=== PATIENT | female | born 1945 | race Caucasian/White ===

== ENCOUNTER 2023-09-18 22:31 | Emergency (ER) | payer MEDICARE, OTHER, SELFPAY ==
[2023-09-18 22:33] VITALS: BP 146/112; PULSE 99; RESP 16; TEMP 36.8; O2SAT 96; BMI 32.7
--- NOTE | 2023-09-18 23:08 | EDS_ITS ---
HPI History of Present Illness Chief Complaint: General Illness Informant: patient Narrative Narrative: Patient is a 77-year-old female with past medical history of [id number] type 2 diabetes hypothyroidism hypertension and herpes. She states that she went to her family doctor as she noticed a increase in lesions and advised her to take three 400 mg acyclovir once daily for the next few days. She states she did this and later than day for like she was shaking and had increased anxiety. He states she was concerned that she may have overdosed and therefore comes in for evaluation [facility] Home Medications acyclovir 400 mg tablet 400 mg PO DAILY 09/18/23 [History Last Taken Unknown] dulaglutide 3 mg/0.5 mL subcutaneous pen injector (Trulicity) 4.5 mg subcut .COMPLEX 09/18/23 [History Last Taken Unknown] empagliflozin 25 mg tablet (Jardiance) 25 mg PO DAILY 09/18/23 [History Last Taken Unknown] fluconazole 150 mg tablet 150 mg PO .COMPLEX 09/18/23 [History Last Taken Unknown] levothyroxine 75 mcg tablet 75 mcg PO DAILY 09/18/23 [History Last Taken Unknown] lisinopril 10 mg tablet 5 mg PO DAILY 09/18/23 [History Last Taken Unknown] pioglitazone 15 mg tablet 15 mg PO DAILY 09/18/23 [History Last Taken Unknown] pravastatin 40 mg tablet 40 mg PO DAILY 09/18/23 [History Last Taken Unknown] Allergy/AdvReac Type Severity Reaction Status Date / Time No Known Allergies Allergy Verified 09/18/23 22:32 Social History Smoking Status: Never smoker [facility] ED Constitutional Constitutional ED: Denies chills or fever(s) Eyes Eyes: Denies change in vision ENT ENT ED: Denies sore throat Cardiovascular Cardiovascular: Denies chest pain Respiratory/Chest Respiratory/Chest: Denies cough or dyspnea Gastrointestinal Gastrointestinal: Denies abdominal pain, diarrhea, nausea or vomiting Genitourinary Genitourinary ED: Denies dysuria Musculoskeletal Musculoskeletal: Denies myalgias Integumentary Denies rash Neurologic Neurologic: Reports other Details: Positive intermittent shaking ; Denies headache(s) Psychiatric Psychiatric: Reports anxiety; Denies suicidal ideation or suicidal thoughts Hematologic/Lymphatic Hematologic/Lymphatic: Denies easy bleeding or easy bruising EXAM Physical Exam Const Vital Signs: 09/18/23 22:33 09/18/23 22:48 Temperature 98.3 F Temperature Source Temporal Pulse Rate 99 Respiratory Rate 16 Respiratory Pattern Normal Blood Pressure 146/112 H Blood Pressure Mean 123 Pulse Ox 96 Oxygen Delivery Method Room Air Positive well nourished and well developed General Appearance ED: well developed; Negative for pallor HEENT HEENT Narrative: Normocephalic atraumatic Eyes PERRL and EOMs intact bilaterally General Eye ED: Negative for scleral icterus Neck supple Neck Narrative: No nuchal rigidity or meningeal signs noted Resp normal respiratory effort and clear to auscultation bilaterally Cardio regular rate and regular rhythm Rate: other Other Details: Radial and carotid pulses are equal and symmetric GI normal to inspection, nondistended, normoactive bowel sounds, non-tender, non- distended and no masses GI Narrative: No pulsatile mass Auscultation: normoactive bowel sounds Palpation: soft Extremity normal to inspection Neuro oriented x3, CN's II-XII intact bilaterally and no sensory deficits noted Neuro Narrative: Cranial nerves II through XII are grossly intact there are no focal neurologic deficits. No pronator drift no dysmetria no truncal ataxia. NIH stroke scale score of 0 Sensorium / Orientation: alert Motor Exam: strength 5/5 throughout Psych Psych Narrative: Patient has a nervous/anxious affect without homicidal or suicidal ideation Skin no rashes or lesions noted General Skin Exam: Negative for jaundice or pallor MDM MDM MDM Narrative Medical decision making narrative: Patient arrived to the ER mildly hypertensive otherwise with stable vitals. She reports that her family doctor had her take 3 of her acyclovir pills today which she is not accustomed to. She states that she was reading the package insert and noted that it talked about it could lead to shaking and/or seizures. She states that after reading this she then noticed that she was having bouts of intermittent shaking or spasms. She states she was unsure if this was related to the medication and therefore comes in for evaluation. She states other than the increased acyclovir recommended by her doctor she has not done any other medication changes nor taking any type of illicit substances. At this time the patient's symptoms are most consistent with anxiety state as she is awake alert and oriented person place and time without signs of hypertensive encephalopathy or signs of acute CVA. Also the fact that she has been awake and alert the entire time goes against seizure-like activity. She does not have findings concerning for myxedema coma on exam either or thyroid storm. Therefore at this time I do not feel there is a need for imaging or laboratory studies and that the patient's symptoms are most likely anxiety driven. As she is not homicidal or suicidal there is no need for psychiatric workup and she is otherwise safe for discharge History & Record Review Discussion w/independent historian: Patient and Friend Discharge Plan Triage Chief Complaint: General Illness ED Provider: Nabor Arzola Dx/Rx/DC Orders Clinical Impression: Anxiety state, Type 2 diabetes mellitus, Hypothyroidism, Hypertension Instructions: Understanding Anxiety Disorders Prescriptions: No Action acyclovir 400 mg tablet 400 mg PO DAILY Patient Comments: INSTRUCTED TO INCREASE TO 3 TABLETS X2 DAYS, 09/18 AND 09/19, THEN GO BACK TO ONE TABLET DAILY 09/20 lisinopril 10 mg tablet 5 mg PO DAILY levothyroxine 75 mcg tablet 75 mcg PO DAILY Patient Comments: HAS NOT STARTED 75MCG DOSE, WAS ON 50MCG UNTIL TODAY 09/18 pravastatin 40 mg tablet 40 mg PO DAILY Trulicity 3 mg/0.5 mL pen injector 4.5 mg SUBCUT .COMPLEX Rx Instructions: 4.5 mg subcutaneously ONCE WEEKLY; ONCE PER WEEK Jardiance 25 mg tablet 25 mg PO DAILY pioglitazone 15 mg tablet 15 mg PO DAILY fluconazole 150 mg tablet 150 mg PO .COMPLEX Rx Instructions: 150 mg orally WEEKLY; Primary Care Provider: Pablito Baugh Referrals: Pablito Baugh PA [Primary Care Provider] - Activity Restrictions/Additional Instructions: Your history and exam indicate that your symptoms are more related to your chronic conditions of hypothyroidism and diabetes and this was worsened by the increased stress/anxiety from taking added medications today. Please take the medications as directed by your family doctor but return to your once daily acyclovir. Please return to the ER should you have any further concerns. If you have difficulty sleeping this evening it is peripheral acceptable to take 2 [id number] Benadryl to help with this Disposition Disposition: Home, Self Care Discharge Date/Time: 09/18/23 23:18
== END 2023-09-18 23:18 | disposition home or self-care (01) ==
LOC: ED 23:17
PROVIDERS: Emergency Provider Emergency Medicine; PCP Physician Assistant; Visit Provider Emergency Medicine
DX: F41.1 Generalized anxiety disorder (principal); E11.9 Type 2 diabetes mellitus without complications; I10 Essential (primary) hypertension; E03.9 Hypothyroidism, unspecified; Z79.899 Other long term (current) drug therapy
CPT/HCPCS: 99282

== ENCOUNTER 2024-10-03 11:25 | Inpatient (IN) | payer MEDICARE, OTHER, SELFPAY ==
[2024-10-03] VITALS (17 sets, daily range): BP systolic 107–144; BP diastolic 68–104; PULSE 91–145; RESP 14–28; TEMP 36.6–36.9; O2SAT 95–99; BMI 31.4; BMI 28.3
--- NOTE | 2024-10-03 11:48 | ED.VIS.CHEST ---
HPI History of Present Illness Chief Complaint: Chest Pain Informant: patient Onset/Context/Timing Onset: Today and Hours Timing: Continuous Quality: Positive for Burning and Indigestion Location: Substernal Current Severity: Mild Maximum Severity: Mild Worsened By: Nothing Relieved By: Nothing Associated Symptoms: Positive for Nausea and Vomiting Narrative Narrative: 78-year-old female past medical history of diabetes, hypothyroidism and high cholesterol. No cardiac history. No history of DVT or PE. Prior history of reflux. States today while eating her breakfast she got lower sternal epigastric pain. Had some nausea and vomiting. Denies any shortness of breath. No recent exertional chest pain or exertional dyspnea. Says she walks around her house all the time up and down steps without any problems. Denies recent illness. Denies fever or diarrhea. No melena or coffee-ground emesis. Prior Similar Symptoms: No Recent Illness/Hospitalization: No CVD Risk Factors: Positive for Diabetes and Hypercholesterolemia; Negative for Hypertension or Smoking PE Risk Factors: Negative for Recent Travel/Surgery, Recent Immobilization, Prior DVT or PE, Cancer or OCP + Smoking + >/=35 TAD Risk Factors: Negative for Marfan's Syndrome [facility] Medical History H/O cold sores Hyperlipemia HTN (hypertension) Hypothyroid Diabetes Home Medications ?Medication ?Instructions ?Recorded ?Last Taken ?Type acyclovir 400 mg tablet 400 mg PO DAILY 09/18/23 10/03/24 History empagliflozin 25 mg tablet 25 mg PO DAILY 09/18/23 10/03/24 History (Jardiance) levothyroxine 75 mcg tablet 75 mcg PO MOTUWETHFRSA 09/18/23 10/03/24 History pravastatin 40 mg tablet 40 mg PO QHS 09/18/23 10/02/24 History calcium carbonate 600 mg PO BID 10/03/24 10/03/24 History cetirizine 10 mg tablet (24Hour 10 mg PO DAILY allergy symptoms 10/03/24 10/03/24 History Allergy) lisinopril 5 mg tablet 5 mg PO DAILY 10/03/24 10/03/24 History multivitamin (Daily Multi-Vitamin 1 tab PO DAILY 10/03/24 10/03/24 History tablet) semaglutide 14 mg tablet (Rybelsus) 14 mg PO DAILY 10/03/24 10/03/24 History Allergy/AdvReac Type Severity Reaction Status Date / Time No Known Allergies Allergy Verified 10/03/24 11:28 Family History no significant family his Social History household members: none housing: [facility] current occupational status: retired Smoking Status: Never smoker ROS ROS ED ROS Narrative Epigastric and lower chest pain. Nausea and vomiting. Constitutional Constitutional ED: Denies chills or fever(s) Eyes Eyes: Reports none ENT ENT ED: Denies ear pain Cardiovascular Cardiovascular: Reports chest pain; Denies palpitations or racing heartbeat Respiratory/Chest Respiratory/Chest: Denies cough, dyspnea or dyspnea on exertion Gastrointestinal Gastrointestinal: Reports abdominal pain, nausea, vomiting and other Details: Mild epigastric pain. ; Denies constipation, diarrhea or melena Genitourinary Genitourinary ED: Denies dysuria or hematuria Musculoskeletal Musculoskeletal: Denies arthralgias or back pain Integumentary Denies abscess or Abrasions Neurologic Neurologic: Denies headache(s) Psychiatric Psychiatric: Denies anxiety or depression Endocrine Endocrinology: Denies cold intolerance Hematologic/Lymphatic Hematologic/Lymphatic: Denies easy bleeding or easy bruising Allergic/Immunologic Allergic/Immunologic ED: Denies mouth swelling, tongue swelling or urticaria EXAM Physical Exam Narrative Exam Narrative: 62-year-old female sitting upright in bed. No distress. Vital signs stable afebrile. Pulse ox 97% on room air no hypoxia. H EENT exam pupils round reactive light. Extra motions are intact. Neck nontender no lymphadenopathy. Lungs clear to auscultation bilaterally. Heart regular rate and rhythm rate about 90 no murmur. Chest wall and ribs and sternum all nontender. No ecchymosis or bruising. No redness or warmth. Abdomen soft nondistended normal bowel sounds without peritoneal signs. Epigastric region with deep palpation is very minimal tenderness. There is no rebound guarding rigidity. No right upper quadrant tenderness. No Delong sign. No McBurney's point tenderness. No hernia or mass. No obstruction. No pulsatile mass. Moving all 4 extremities. Calves are nontender without edema. Normal dorsi plantarflexion. Normal hairspring truer strength. Equal symmetrical radial pulses. Back nontender. Neurologically she is awake and alert no focal motor deficits. Const Vital Signs: 10/03/24 11:28 10/03/24 11:44 10/03/24 11:45 Temperature 97.8 F Temperature Source Oral Pulse Rate 91 Respiratory Rate 16 Respiratory Effort Normal Non-Labored Blood Pressure 136/68 H Blood Pressure Mean 90 Pulse Ox 97 98 Oxygen Delivery Method Room Air Room Air 10/03/24 12:25 10/03/24 13:00 10/03/24 14:24 Temperature Temperature Source Pulse Rate 107 H 130 H Respiratory Rate 16 25 H Respiratory Effort Blood Pressure 144/81 H Blood Pressure Mean 102 Pulse Ox 99 98 Oxygen Delivery Method Room Air Room Air 10/03/24 15:00 10/03/24 15:07 10/03/24 15:30 Temperature Temperature Source Pulse Rate 145 H 129 H Respiratory Rate 26 H 14 Respiratory Effort Blood Pressure 143/85 H 144/72 H Blood Pressure Mean 101 93 Pulse Ox Oxygen Delivery Method 10/03/24 16:06 10/03/24 16:30 10/03/24 16:45 Temperature Temperature Source Pulse Rate 137 H 141 H 132 H Respiratory Rate 18 21 H 25 H Respiratory Effort Blood Pressure 139/76 H 143/104 H 118/82 H Blood Pressure Mean 90 118 95 Pulse Ox Oxygen Delivery Method 10/03/24 17:00 Temperature Temperature Source Pulse Rate 127 H Respiratory Rate 24 H Respiratory Effort Blood Pressure 126/79 H Blood Pressure Mean 91 Pulse Ox Oxygen Delivery Method Positive well nourished and well developed; Negative for cachectic, contractures or unkempt General Appearance ED: well developed and NAD; Negative for unkempt, cachectic, contractures or pallor Nutritional Appearance: Negative for cachectic HEENT Reports moist mucous membranes normocephalic and atraumatic; Negative for trauma or tenderness Eyes PERRL and EOMs intact bilaterally General Eye ED: Negative for pale conjunctiva or scleral icterus Neck no lymphadenopathy, supple and no JVD General: Negative for tenderness Chest Wall inspection of chest normal and palpation of chest normal Chest: Negative for tenderness Resp normal respiratory effort and clear to auscultation bilaterally Effort and Inspection: Negative for respiratory distress Auscultation: Negative for rales, rhonchi, wheezes or diminished lung sounds Cardio regular rate, regular rhythm, S1 normal heart sound, S2 normal heart sound and no murmurs Rate: Negative for bradycardia or tachycardic Peripheral Pulses: pulses 2+ throughout GI normal to inspection, nondistended, normoactive bowel sounds, soft to palpation, non-distended and no masses; Negative for non-tender GI Narrative: Minimal epigastric tenderness with deep palpation. Palpation: Negative for splenomegaly or mass Back/Spine no CVA tenderness and no thoracic nor lumbar tenderness General Back: Negative for CVA tenderness Cervical Spine: Negative for cervical spine tenderness Extremity normal to inspection General Extremety ED: Negative for edema, pulses abnormal or tenderness General Extremity: Negative for edema or pulses abnormal Neuro oriented x3 and CN's II-XII intact bilaterally Sensorium / Orientation: awake, alert, oriented to person, oriented to place and oriented to time; Negative for confused, lethargic or stuporous Motor Exam: strength 5/5 throughout Psych mental status grossly normal Appearance: Negative for unkempt Attitude: No agitated Mood & Affect: Negative for depressed, anxious or tearful Skin no rashes or lesions noted and no wounds General Skin Exam: Negative for jaundice or pallor Rashes: No rashes noted Trauma: Negative for abrasion or laceration Heart Score History: Slightly/Non-Suspicious ECG: Normal Age: >/= 65 years Risk Factors: 1 or 2 Risk Factors Troponin: </= Normal Limit Score: 3 MDM MDM MDM Narrative Medical decision making narrative: 78-year-old female with nonexertional chest and primarily epigastric pain. He gets unlikely. Repeat exam patient is doing well at 2:30 PM. Still not having any pain chest or abdominal pain at this time. We palpated a right upper quadrant nontender. I went over her test with her. With her elevated liver enzymes I am obtaining an ultrasound patient is aware that. I am going to do a 2-hour troponin but I really do not think this is cardiac at all. They did do a repeat EKG it showed a sinus tachycardia at 128. Repeat exam at 5 PM. Patient remains tachycardic around 130. Obtaining a CTA of her chest. She will be checked out to the afternoon physician. I will check the CTA results. I will speak to the hospitalist about planned admission. Pending CTA results. History & Record Review Discussion w/independent historian: Patient Additional record(s) reviewed:: Prior inpatient record, Prior outpatient record, Prior ED visit and Prior labs Lab Data Attestation: I reviewed the patient's lab results. Lab results narrative: CBC unremarkable. White count of 10. H&H 15.8 and 46. Platelets 194. Electrolytes show gap 16. BUN of 18 creatinine 0.8. Glucose 181. Liver enzymes are elevated. Lipase is normal at 44. Chest x-ray is normal. Troponin is normal at 11. Labs: Laboratory Results - last 24 hr 10/03/24 10/03/24 10/03/24 11:50 14:12 14:37 WBC 10.0 RBC 5.09 Hgb 15.8 H Hct 46.3 MCV 91.0 MCH 31.0 MCHC 34.1 RDW Std Deviation 44.9 H RDW Coeff of Charles 13.3 Plt Count 194 MPV 9.4 Immature Gran % (Auto) 0.500 Neut % (Auto) 81.9 H Lymph % (Auto) 10.9 L Alger % (Auto) 5.4 Eos % (Auto) 0.9 Baso % (Auto) 0.4 Absolute Neuts (auto) 8.2 H Absolute Lymphs (auto) 1.09 Nucleated RBC % 0 Sodium 141 Potassium 3.8 Chloride 101 Carbon Dioxide 23.9 Anion Gap 16 H BUN 18 Creatinine 0.83 Estim Creat Clear Calc 55.69 Est GFR (MDRD) Non-Af 73 BUN/Creatinine Ratio 22.0 H Glucose 181 H Calcium 9.9 Total Bilirubin 1.38 H Direct Bilirubin 0.98 H AST 242 H ALT 120 H Alkaline Phosphatase 80 Troponin T High Sens 11 Troponin T Hi Sens 2 Hr 9 Total Protein 7.2 Albumin 4.4 Globulin 2.7 Lipase 44 POC Glucose 123 H Third EKG was obtained at 3:14 PM. Again shows a sinus tachycardia incomplete right bundle branch block. Again no signs of AK. Radiography Chest X-Ray - ED: 1 View, Read by ED Physician, Read by Radiologist, Heart, Lungs, Mediastinum, Bony Structures, No Acute Disease and Chronic Changes Diagnostic Testing: Clinical Impression(s) from Imaging Studies Chest X-Ray 10/03/24 12:00 IMPRESSION: No acute cardiopulmonary process. [facility] Gall[facility]adder Ultrasound 10/03/24 14:32 IMPRESSION: 1. No visualized cholelithiasis or findings to suggest cholecystitis. No significant biliary dilatation. If unexplained symptoms persist, consider CT. 2. Additional description as above. Reading Location: [facility] Chest x-ray, portable, single view interpreted by myself shows no acute abnormality. Normal cardiac silhouette. Normal mediastinum. Normal lung richmond. Chronic changes. Rhythm Strip Rhythm Strip: Sinus Rhythm Rate: 91 Ectopy: None EKG Initial EKG: Attestation: I personally reviewed and interpreted this EKG as follows: Interpretation: Sinus Rhythm and No Acute Injury Pattern Comments: Normal sinus rhythm rate of 91 no acute signs of AK or ischemia. No dysrhythmia Follow-up EKG: Attestation: I personally reviewed and interpreted this EKG as follows: Interpretation: No Acute Injury Pattern and Sinus Tachycardia Comments: Sinus tachycardia rate of 128 no acute signs of AK or ischemia. Discharge Plan Triage Chief Complaint: Chest Pain ED Provider: Cruz Storm Dx/Rx/DC Orders Clinical Impression: Atypical chest pain, Tachycardia, History of diabetes mellitus Prescriptions: No Action Rybelsus 14 mg tablet 14 mg PO DAILY lisinopril 5 mg tablet 5 mg PO DAILY cetirizine [24Hour Allergy] 10 mg tablet 10 mg PO DAILY calcium carbonate 600 mg calcium (1,500 mg) tablet 600 mg PO BID multivitamin [Daily Multi-Vitamin] Tablet 1 tab PO DAILY acyclovir 400 mg tablet 400 mg PO DAILY levothyroxine 75 mcg tablet 75 mcg PO MOTUWETHFRSA pravastatin 40 mg tablet 40 mg PO QHS Jardiance 25 mg tablet 25 mg PO DAILY Primary Care Provider: Genesis Simpson Referrals: Pablito Baugh PA [Non-Staff] - Print Language: Indonesian Disposition Disposition: Acute Care Hospital [facility]
[2024-10-03] MEDS: Pantoprazole Sodium 40 MG Tablet PO (11:53)
--- NOTE | 2024-10-03 12:00 | RAD_ITS ---
PROCEDURE: CHEST 1 VIEW (PORTABLE) REASON FOR EXAM: Chest pain TECHNIQUE: Frontal view of the chest. COMPARISON: None FINDINGS: The heart size is normal. No focal consolidation. No pneumothorax. No pleural effusion. RAD/Chest 1 View (Portable) IMPRESSION: No acute cardiopulmonary process. [facility]
[2024-10-03 12:10] LABS: Absolute Lymphocyte Count 1.09 X10^3/uL (0.83-4.51); Absolute Neutrophil Count 8.2 X10^3/uL (2.0-7.7); Basophil# 0.04 X10^3/uL; Basophil% 0.4 % (0-1); Eosinophil# 0.09 X10^3/uL; Eosinophils% 0.9 % (0-5); Hematocrit 46.3 % (37-47); Hemoglobin 15.8 g/dL (12.0-15.0); Lymphocyte # 1.09 X10^3/ul (0.83-4.51); Lymphocyte % 10.9 % (19-41); Mean Corp Hgb Conc 34.1 g/dL (32-36); Mean Platelet Vol. 9.4 fl (6.2-12.0); Monocyte# 0.54 X10^3/uL; Monocyte% 5.4 % (0-10); NRBC Flagged by Analyzer 0 % (0-5); Neutrophil % 81.9 % (47-70); Platelet Count 194 K/mm3 (150-450); RBC Distribution Width CV 13.3 % (11.6-14.6); RBC Distribution Width SD 44.9 fl (35.1-43.9); Red Blood Count 5.09 M/mm3 (4.2-5.4)
[2024-10-03 12:24] LABS: Anion Gap 16 (5-15); BUN 18 mg/dL (4-19); Calcium,Total 9.9 mg/dL (7.6-11.0); Carbon Dioxide 23.9 mmol/L (21.0-32.0); Chloride 101 mmol/L (98-108); Creatinine, Serum 0.83 mg/dL (0.70-1.20); EST Glomerular Filtration Rate 73 (>60); Estimated Creatinine Clearance 55.69 ml/min (50-250); Glucose 181 mg/dL (70-99); Potassium 3.8 mmol/L (3.3-5.1); Sodium Level 141 mmol/L (133-145); Troponin T High Sensitivity 11 ng/L (<=14)
[2024-10-03 12:42] LABS: AST(SGOT) 242 U/L (<=31); Alanine Aminotransfer ALT/SGPT 120 U/L (<=34); Albumin, Serum 4.4 g/dL (3.4-4.8); Alkaline Phosphatase 80 U/L (35-104); Bilirubin, Direct 0.98 mg/dL (0.00-0.30); Globulin 2.7 g/dL (2.2-4.2); Lipase 44 U/L (13-75); Protein, Total 7.2 g/dL (5.9-8.4); Total Bilirubin 1.38 mg/dL (0.00-1.30)
[2024-10-03] MEDS: Ondansetron 4 MG/2 ML Vial IV (14:18)
[2024-10-03 14:29] LABS: Bedside Glucose 123 mg/dL (74-106)
--- NOTE | 2024-10-03 14:32 | US_ITS ---
PROCEDURE: GALLBLADDER REASON FOR EXAM: Pain and elevated LFTs COMPARISON: None FINDINGS: Exam limited by shadowing bowel gas as well as reportedly by the patient's clinical status. Liver: Unremarkable. 15.8 cm in length. Gallbladder: No visualized stones, sludge, wall thickening or pericholecystic fluid. Reportedly, sonographic Delong's was negative. Common bile duct: CBD is top-normal in caliber at 6 mm, potentially age related. Pancreas: Largely obscured by bowel gas, not well evaluated. Right kidney: Unremarkable. 9.7 cm in length. Other: No visualized free fluid. US/Gallbladder IMPRESSION: 1. No visualized cholelithiasis or findings to suggest cholecystitis. No signi ficant biliary dilatation. If unexplained symptoms persist, consider CT. 2. Additional description as above. Reading Location: [id number]
[2024-10-03 15:12] LABS: Troponin T High Sens 2 HR 9 ng/L (<=14)
--- NOTE | 2024-10-03 17:15 | CT_ITS ---
PROCEDURE: CTA CHEST W CONTRAST REASON FOR EXAM: atypical cp and tachycardia TECHNIQUE: CTA chest was performed following the administration of IV contrast. Multiplanar reformats and MIP reconstructions were generated. CONTRAST: 96 mL Isovue-300. COMPARISON: No prior CT or CTA chest. FINDINGS: Heart/pericardium: Unremarkable. Aorta: Unremarkable. Pulmonary arteries: Normal in caliber. No pulmonary embolism is identified. Lymph nodes: Unremarkable. Lungs/pleura: Mild atelectasis/scarring. 2 mm right upper lobe micronodule (series 2, image 145).. Airways: Unremarkable. Chest wall: Unremarkable. Upper abdomen: Grossly unremarkable. Musculoskeletal: Multilevel spondylosis.. CT/CTA Chest W/WO Contrast IMPRESSION: 1. No visible pulmonary embolism or other acute abnormality identified. 2. 2 mm right upper lobe micronodule, statistically benign and requiring no spe cific follow-up in a low risk patient. Otherwise, recommend follow-up CT chest in one year per the Fleischner society recommendat ions for pulmonary nodule follow-up, presuming no history of malignancy or known immunosuppression. 3. Additional description as above. Reading Location: [id number]
--- NOTE | 2024-10-03 17:23 | PCM.HP.STD ---
HPI - General General Date of Service: 10/03/24 Chief Complaint: chest pain HPI Narrative ADÁN SHEETS, is a 78 F with a PMH as outlined who presents via the ED on 10/03/2024 with a complaint of chest pain. She said she was eating her breakfast and started having chest pain. Pain was also in her lower epigastric region. She denied any shortness of breath, palpitations, or dizziness or lightheadedness. She did admit to some nausea and vomiting. She has not had such symptoms in the past. CT abdomen able to perform her activities of daily living previously without any concerns. Review of systems otherwise negative. Vitals in the ED were temperature of 97.8 Fahrenheit, heart rate of 127, blood pressure 126/79 and respiratory rate of 24. She was saturating at 98% on room air. CBC showed hemoglobin of 15.8 with WBC of 10 and platelets of 184. Chemistry showed sodium of 141 potassium of 3.8 and bicarb of 23.9. Creatinine was 0.83. Total bilirubin was 1.38 with direct bilirubin of 0.98. AST was 242 with ALT of 120. ALP was 80. Initial troponin was negative and the delta troponin was also negative. Lipase was 44. Chest x-ray showed no acute cardiopulmonary pathology and gallbladder ultrasound showed no visualized cholelithiasis or findings to suggest cholelithiasis and no significant biliary dilatation. CTA of the chest was done and read was pending. She has been admitted to be managed for chest pain to rule out ACS and also tachycardia of unclear etiology. [facility] Medical History (Updated 10/03/24 @ 17:53 by Perlita Kingsley) Osteoarthritis Non-smoker Chest pain H/O cold sores Hyperlipemia HTN (hypertension) Hypothyroid Diabetes Home Medications ?Medication ?Instructions ?Recorded ?Last Taken ?Type acyclovir 400 mg tablet 400 mg PO DAILY 09/18/23 10/03/24 History empagliflozin 25 mg tablet 25 mg PO DAILY 09/18/23 10/03/24 History (Jardiance) levothyroxine 75 mcg tablet 75 mcg PO MOTUWETHFRSA 09/18/23 10/03/24 History pravastatin 40 mg tablet 40 mg PO QHS 09/18/23 10/02/24 History calcium carbonate 600 mg PO BID 10/03/24 10/03/24 History cetirizine 10 mg tablet (24Hour 10 mg PO DAILY allergy symptoms 10/03/24 10/03/24 History Allergy) lisinopril 5 mg tablet 5 mg PO DAILY 10/03/24 10/03/24 History multivitamin (Daily Multi-Vitamin 1 tab PO DAILY 10/03/24 10/03/24 History tablet) semaglutide 14 mg tablet (Rybelsus) 14 mg PO DAILY 10/03/24 10/03/24 History Allergy/AdvReac Type Severity Reaction Status Date / Time No Known Allergies Allergy Verified 10/03/24 11:28 Family History no significant family his Surgical History (Updated 10/03/24 @ 17:53 by Perlita Kingsley) History of appendectomy Social History household members: none housing: [facility] current occupational status: retired Smoking Status: Never smoker ROS Constitutional Constitutional: Denies anorexia, chills, fatigue, fever(s), malaise or weakness Eyes Eyes: Denies change in vision ENT HEENT: Denies dysphagia, headache(s) or sore throat Cardiovascular Cardiovascular: Reports chest pain, palpitations and rapid heart rate; Denies dyspnea on exertion, edema, lightheadedness, orthopnea, paroxysmal nocturnal dyspnea or syncope Respiratory/Chest Respiratory/Chest: Reports dyspnea; Denies cough, productive cough, shortness of breath at rest, shortness of breath with exertion or wheezing Gastrointestinal Gastrointestinal: Denies abdominal pain, coffee ground emesis, constipation, diarrhea, nausea or vomiting Genitourinary Genitourinary: Denies dysuria Neurologic Neurologic: Denies confusion, dizziness, focal weakness, headache(s), numbness, seizure-like activity, seizures, syncope or tingling Psychiatric Psychiatric: Denies anxiety or depression Endocrine Endocrinology: Denies change in body appearance Vital Signs Vital Signs Vital Signs: 10/03/24 11:28 10/03/24 11:44 10/03/24 11:45 Temperature 97.8 F Temperature Source Oral Pulse Rate 91 Respiratory Rate 16 Respiratory Effort Normal Non-Labored Blood Pressure 136/68 H Blood Pressure Mean 90 Pulse Ox 97 98 Oxygen Delivery Method Room Air Room Air 10/03/24 12:25 10/03/24 13:00 10/03/24 14:24 Temperature Temperature Source Pulse Rate 107 H 130 H Respiratory Rate 16 25 H Respiratory Effort Blood Pressure 144/81 H Blood Pressure Mean 102 Pulse Ox 99 98 Oxygen Delivery Method Room Air Room Air 10/03/24 15:00 10/03/24 15:07 10/03/24 15:30 Temperature Temperature Source Pulse Rate 145 H 129 H Respiratory Rate 26 H 14 Respiratory Effort Blood Pressure 143/85 H 144/72 H Blood Pressure Mean 101 93 Pulse Ox Oxygen Delivery Method 10/03/24 16:06 10/03/24 16:30 10/03/24 16:45 Temperature Temperature Source Pulse Rate 137 H 141 H 132 H Respiratory Rate 18 21 H 25 H Respiratory Effort Blood Pressure 139/76 H 143/104 H 118/82 H Blood Pressure Mean 90 118 95 Pulse Ox Oxygen Delivery Method 10/03/24 17:00 Temperature Temperature Source Pulse Rate 127 H Respiratory Rate 24 H Respiratory Effort Blood Pressure 126/79 H Blood Pressure Mean 91 Pulse Ox Oxygen Delivery Method Weight Weight: 171 lb 8.314 oz Body Mass Index (BMI) 31.4 Physical Exam Const alert, oriented x3, no apparent distress and average body habitus General Appearance: cooperative HEENT normocephalic, head/scalp atraumatic, moist oral mucous membranes and oropharynx normal Mouth: oral and palatal mucosa normal Eyes PERRL, EOMs intact bilaterally and conjunctivae normal Resp no retractions, no use of accessory muscles and clear to auscultation bilaterally Cardio S1 normal heart sound, S2 normal heart sound and no murmurs Cardio Narrative: tachycardic GI normal to inspection, nondistended, normoactive bowel sounds, soft to palpation, non-tender and non-distended GI Narrative: Delong's sign is negative Extremity normal to inspection, full ROM and no clubbing, cyanosis or edema Neuro oriented x3, CN's II-XII intact bilaterally, moves all extremities and no focal motor deficits Sensorium / Orientation: awake and alert Motor Exam: strength 5/5 throughout Psych affect normal Results Lab / Micro Data 10/03/24 11:50 10/03/24 11:50 Labs: Laboratory Results - last 24 hr 10/03/24 11:50: WBC 10.0, RBC 5.09, Hgb 15.8 H, Hct 46.3, MCV 91.0, MCH 31.0, MCHC 34.1, RDW Std Deviation 44.9 H, RDW Coeff of Charles 13.3, Plt Count 194, MPV 9.4, Immature Gran % (Auto) 0.500, Neut % (Auto) 81.9 H, Lymph % (Auto) 10.9 L, [place] % (Auto) 5.4, Eos % (Auto) 0.9, Baso % (Auto) 0.4, Absolute Neuts (auto) 8.2 H, Absolute Lymphs (auto) 1.09, Nucleated RBC % 0, Sodium 141, Potassium 3.8, Chloride 101, Carbon Dioxide 23.9, Anion Gap 16 H, BUN 18, Creatinine 0.83, Estim Creat Clear Calc 55.69, Est GFR (MDRD) Non-Af 73, BUN/Creatinine Ratio 22.0 H, Glucose 181 H, Calcium 9.9, Total Bilirubin 1.38 H, Direct Bilirubin 0.98 H, AST 242 H, ALT 120 H, Alkaline Phosphatase 80, Troponin T High Sens 11, Total Protein 7.2, Albumin 4.4, Globulin 2.7, Lipase 44 10/03/24 14:12: POC Glucose 123 H 10/03/24 14:37: Troponin T Hi Sens 2 Hr 9 Rhythm Strip Rhythm Strip: Sinus Rhythm Rate: 91 Ectopy: None Imaging Radiology Impression Chest X-Ray 10/03/24 12:00 IMPRESSION: No acute cardiopulmonary process. Reading [facility] Gallbladder Ultrasound 10/03/24 14:32 IMPRESSION: 1. No visualized cholelithiasis or findings to suggest cholecystitis. No significant biliary dilatation. If unexplained symptoms persist, consider CT. 2. Additional description as above. Reading Location: [id number] Assessment & Plan Assessment/Plan (1) Tachycardia: (2) Atypical chest pain: PLAN: Plan #Chest pain to rule out ACS admit to PCU Troponins x 2 were negative. However patient became tachycardic in the ED with heart rate going up as high as the 140s. EKG showed sinus tachycardia. CT of the chest ordered and per my review shows no evidence of PE but official read is pending. Consult cardiology. IV Lopressor as needed Check TSH. check respiratory panel also #SIRS criteria of unclear etiology Patient is tachypneic and tachycardic. She is not febrile and there does not seem to be a clear focus of infection. Respiratory panel ordered. Rest of management as above on the chest pain. #Elevated liver enzymes: Total bilirubin is 1.38. AST and ALT elevated but ALP is normal. Gallbladder ultrasound showed no acute pathology. If liver enzymes remain elevated will consider CT of the abdomen and gastroenterology consult #Hypothyroidism: On Synthroid. Check TSH. #Hypertension: On lisinopril. #Type 2 diabetes mellitus: On empagliflozin 25 mg daily. Also on semaglutide. DVT prophylaxis: Lovenox CODE STATUS: Patient and her daughter counseled extensively about different types of CODE STATUS including full code, DNR CCA and DNR CCA. Patient elects to be full code and states she would want attempts made at resuscitating her if needed. Her daughter will be the person making decisions for her and she did assess if she is going to be a vegetable and she would want to be taken off the ventilator and any resuscitative tube measures discontinued. Daughter is present during this discussion and is in agreement with her mother's decision. Total [id number] time 18 minutes. Charges/Coding Visit Charges Inpatient E&M: 27757 Init Hosp L2 Procedures Hospitalists Procedures: 72473 Advncd Care Plan 30 Min
[2024-10-03 19:17] LABS: Troponin T High Sens 2 HR 9 ng/L (<=14)
[2024-10-03 19:34] LABS: Pro- Brain NATRIURETIC PEPTIDE 89 pg/mL (<=1800); Thyroid Stim Hormone (TSH) 0.263 uIU/mL (0.300-4.200)
[2024-10-03] MEDS: 0.9% Normal Saline (1000mL) 1,000 ML 100 ML IV (21:00)
[2024-10-03] MEDS: Calcium (Elemental) 500 MG Tablet 1500 MG PO (22:14)
[2024-10-03] MEDS: Insulin Lispro 100 UNIT/ML INSULN.PEN SC (22:14)
[2024-10-03 22:23] LABS: Free T3 2.6 pg/mL (2.18-3.98); Troponin T High Sens 4 HR 13 ng/L (<=14)
[2024-10-03 22:41] LABS: Bedside Glucose 214 mg/dL (74-106)
[2024-10-04] VITALS (7 sets, daily range): BP systolic 96–111; BP diastolic 64–73; PULSE 94–111; RESP 16; TEMP 36.8–37.1; O2SAT 93–96
[2024-10-04 05:23] LABS: Absolute Lymphocyte Count 1.19 X10^3/uL (0.83-4.51); Absolute Neutrophil Count 9.6 X10^3/uL (2.0-7.7); Basophil# 0.03 X10^3/uL; Basophil% 0.3 % (0-1); Eosinophil# 0.01 X10^3/uL; Eosinophils% 0.1 % (0-5); Hematocrit 41.3 % (37-47); Hemoglobin 14.1 g/dL (12.0-15.0); Lymphocyte # 1.19 X10^3/ul (0.83-4.51); Lymphocyte % 10.2 % (19-41); Mean Corp Hgb Conc 34.1 g/dL (32-36); Mean Corpuscular Hgb 31.3 pg (27.0-32.0); Mean Corpuscular Volume 91.6 fL (81-99); Mean Platelet Vol. 9.8 fl (6.2-12.0); Monocyte# 0.81 X10^3/uL; Monocyte% 6.9 % (0-10); NRBC Flagged by Analyzer 0 % (0-5); Neutrophil % 81.8 % (47-70); Platelet Count 168 K/mm3 (150-450); RBC Distribution Width SD 47.5 fl (35.1-43.9); Red Blood Count 4.51 M/mm3 (4.2-5.4); White Blood Count 11.7 K/mm3 (4.4-11.0)
[2024-10-04 05:55] LABS: ALB/GLOB Ratio 1.6 RATIO (0.9-2.4); AST(SGOT) 601 U/L (<=31); Alanine Aminotransfer ALT/SGPT 595 U/L (<=34); Albumin, Serum 3.9 g/dL (3.4-4.8); Alkaline Phosphatase 91 U/L (35-104); Anion Gap 15 (5-15); BUN 17 mg/dL (4-19); Calcium,Total 9.1 mg/dL (7.6-11.0); Carbon Dioxide 21.5 mmol/L (21.0-32.0); Chloride 101 mmol/L (98-108); Creatinine, Serum 0.85 mg/dL (0.70-1.20); EST Glomerular Filtration Rate 71 (>60); Estimated Creatinine Clearance 51.68 ml/min (50-250); Globulin 2.5 g/dL (2.2-4.2); Glucose 138 mg/dL (70-99); Potassium 3.8 mmol/L (3.3-5.1); Protein, Total 6.3 g/dL (5.9-8.4); Sodium Level 138 mmol/L (133-145); Total Bilirubin 3.66 mg/dL (0.00-1.30)
--- NOTE | 2024-10-04 05:55 | ECHOD_ITS ---
Reason For Study Reason For Study: ARRHYTHMIA (SINUS TACHYCARDIA) Procedure This was a 2D Doppler, Color Flow transthoracic echocardiogram. Exam performed portable in patient room. Left Ventricle Normal LV size. The estimated ejection fraction is 60 %. Normal diastology for age. No regional wall motion abnormalities noted. Right Ventricle Normal RV size. Normal systolic function. Atria The left and right atria are normal. Mitral Valve The mitral valve is structurally normal. No prolapse or stenosis seen. Tricuspid Valve Normal tricuspid valve. Trivial tricuspid valve insufficiency. Pulmonary artery systolic pressure is 27 mmHg. Aortic Valve Trisinus/trileaflet aortic valve. Pulmonic Valve Normal pulmonic valve. Great Vessels Normal sized aortic root. Pericardium/Pleural No pericardial effusion. MMode/2D Measurements & Calculations LVIDd: 4.3 cm IVSd: 0.95 cm Ao root diam: 3.3 cm LVIDs: 2.5 cm LVPWd: 0.77 cm RVDd: 3.4 cm FS: 43.0 % LAV(MOD-bp): 41.6 ml LVAd ap4: 22.8 cm2 LVAd ap2: 21.5 cm2 LAV(MOD-bp) Indexed: 24.3 ml/m2 LVLd ap4: 6.3 cm LVLd ap2: 6.4 cm LAV(MOD-sp2): 40.8 ml EDV(MOD-sp4): 67.7 ml EDV(MOD-sp2): 61.4 ml LAV(MOD-sp4): 40.3 ml EDV(sp4-el): 70.1 ml EDV(sp2-el): 61.6 ml LVAs ap4: 11.5 cm2 LVAs ap2: 10.5 cm2 LVLs ap4: 4.9 cm LVLs ap2: 4.8 cm ESV(MOD-sp4): 23.0 ml ESV(MOD-sp2): 19.7 ml ESV(sp4-el): 22.9 ml ESV(sp2-el): 19.5 ml EF(MOD-sp4): 66.0 % EF(MOD-sp2): 67.9 % EF(sp4-el): 67.3 % SV(MOD-sp4): 44.7 ml SV(MOD-sp2): 41.7 ml SV(sp4-el): 47.2 ml SI(MOD-sp4): 26.1 ml/m2 SI(MOD-sp2): 24.4 ml/m2 LA A4 area: 15.6 cm2 LA dimension(2D): 3.3 cm RA A4 area: 12.2 cm2 TAPSE: 2.3 cm Time Measurements MV dec time: 0.16 sec Doppler Measurements & Calculations MV E max cash: 81.2 cm/sec Lat Peak E' Cash: 9.5 cm/sec Med Peak E' Cash: 9.3 cm/sec MV A max cash: 99.3 cm/sec E/E' lat: 8.6 E/E' med: 8.8 MV E/A: 0.82 MV V2 max: 132.4 cm/sec Ao V2 max: 128.0 cm/sec LV V1 max: 95.8 cm/sec MV max P.0 mmHg Ao max P.6 mmHg LV V1 max P.7 mmHg MV V2 mean: 80.0 cm/sec Ao V2 mean: 92.4 cm/sec LV V1 mean P.0 mmHg MV mean P.9 mmHg Ao mean P.7 mmHg LV V1 mean: 65.6 cm/sec MV V2 VTI: 18.3 cm Ao V2 VTI: 24.9 cm LV V1 VTI: 17.4 cm AV (velocity ratio): 0.70 PA V2 max: 86.0 cm/sec TR max cash: 244.9 cm/sec PA V2 mean: 62.7 cm/sec TR max P.0 mmHg ECHO/Echo Complete Interpretation Summary The estimated ejection fraction is 60 %. Structually normal valves. Ordering Physician: Elen Perry Referring Physician: Genesis Simpson Performed By: Tianna Rivas, EBONY, RVT
[2024-10-04 06:05] LABS: Hemoglobin A1c 7.2 % (<=5.6)
[2024-10-04 06:33] LABS: Magnesium 1.9 mg/dL (1.5-2.2)
[2024-10-04 06:45] LABS: Bedside Glucose 144 mg/dL (74-106)
[2024-10-04] MEDS: 0.9% Normal Saline (1000mL) 1,000 ML 100 ML IV (06:55)
[2024-10-04] MEDS: SEMAGLUTIDE 14 MG TABLET PO (06:57)
[2024-10-04] MEDS: Loratadine 10 MG Tablet PO (09:52)
[2024-10-04] MEDS: Empagliflozin 25 MG Tablet PO (09:52)
[2024-10-04] MEDS: Multivitamins,Therapeutic Tablet 1 TABLET PO (09:53)
[2024-10-04] MEDS: Calcium (Elemental) 500 MG Tablet 1500 MG PO ×2 (09:53→21:47)
[2024-10-04] MEDS: Enoxaparin 40 MG/0.4 ML Syringe SC (09:54)
--- NOTE | 2024-10-04 10:33 | MRI_ITS ---
PROCEDURE: MRCP ABDOMEN WITHOUT CONTRAST REASON FOR EXAM: jaundice and cholestatic hepatitis TECHNIQUE: MRI abdomen was performed without IV contrast. MRCP was performed including generation of 3-D reformats. COMPARISON: 10/03/2024 FINDINGS: Note that the exam was optimized for evaluation of the gallbladder and biliary tree rather than the remaining abdominal viscera. Note also that sensitivity is limited in the absence of IV contrast. Variable overall mild motion limitation with some sequences being mild/moderately motion degraded. Liver: Unremarkable. Gallbladder: Mild eccentric gallbladder wall thickening greatest along the hepatic fossa and fundus. No visualized gallstones. Biliary tree: No intrahepatic biliary dilation. Common hepatic duct measures 6 mm. CBD measures 7 mm. No choledocholithiasis or other obstructing process identified within limits of noncontrast technique and absence of routine MRI abdomen sequences. Pancreas: Unremarkable. Other: 3.9 cm periampullary duodenal diverticulum. Few lumbar vertebral body presumed hemangiomas in the absence of known malignancy. Presumed uterine fibroid roughly 3.3 cm on the general internist and physician leader, not well evaluated. Diverticulosis. MRI/MRCP Abdomen without Contrast IMPRESSION: 1. Mild gallbladder wall thickening without visualized cholelithiasis. This fi nding is nonspecific and could be secondary to a primarily hepatic process such as hepatitis as suspected clinically, or perhaps early cholecystitis. Correlate with presentation/exam and if there is persistent concern, consider HIDA. 2. Redemonstrated borderline mild extrahepatic biliary dilatation without visua lized choledocholithiasis or definite obstructing process evident by noncontrast MRCP. This could again conceivably be age-relat ed, related to a nearby 3.9 cm periampullary duodenal diverticulum ampullary stenosis, or perhaps less likely an occult ampu llary lesion. If concern persists, consider ERCP versus MRI abdomen with and without contrast. 3. Consider pelvic ultrasound for further evaluation of a 3.3 cm presumed uteri ne fibroid, not well evaluated. 4. Additional description as above. Reading Location: [id number]
--- NOTE | 2024-10-04 10:33 | CASEMGMT ---
Met with patient to complete HARDEN form. HARDEN form explained to patient who voiced understanding and signed form. Original form placed in pt?s chart and copy provided to patient. Yakelin Azevedo, Discharge Planning Asst
--- NOTE | 2024-10-04 11:35 | CASEMGMT ---
RN CM into pt room, pt lying in bed in no distress. Pt states she lives at home alone, she is I with ADLs and IADLs. Pt states she drives herself. Recently take of 2L of O2. Discussed if she would need O2 at DC, provided list of local DME providers, pt chose [facility] if needed. Pt denies any additional DC needs.
[2024-10-04] MEDS: Insulin Lispro 100 UNIT/ML INSULN.PEN SC (12:58)
[2024-10-04] MEDS: 0.9% Saline Lock 10 ML Syringe IV (12:59)
[2024-10-04 13:21] LABS: Bedside Glucose 164 mg/dL (74-106)
--- NOTE | 2024-10-04 13:54 | PN_ITS ---
Subjective Subjective Patient seen and examined. She feels well and has no complaints. Her tachycardia has improved. She denies any chest pain or palpitations, dizziness, nausea vomiting or any other symptoms. Review systems otherwise negative. She is on room air this morning. Objective Data Objective Data Vital Signs: Vital Signs Temp Pulse Resp BP Pulse Ox O2 Del Method O2 Flow Rate 98.2 F 94 16 96/73 93 Room Air 2 10/04/24 09:19 10/04/24 09:55 10/04/24 09:19 10/04/24 09:55 10/04/24 09:19 10/04/24 09:57 10/04/24 09:34 Oxygen Flow Rate (L/min) 2 Oxygen Delivery Method Room Air Weight: 154 lb 12.232 oz Body Mass Index (BMI) 28.3 Intake & Output: Intake and Output for Last 24 Hours 10/02/24 10/03/24 10/04/24 23:59 23:59 23:59 Intake Total 1475.00 / 1475.00 Output Total 1200 / 1200 Balance 275.00 / 275.00 Lab / Micro Data 10/04/24 04:44 10/04/24 04:44 Labs: Laboratory Results - last 24 hr 10/03/24 14:12: POC Glucose 123 H 10/03/24 14:37: Troponin T Hi Sens 2 Hr 9, NT pro BNP II 89, TSH 0.263 L 10/03/24 17:28: Troponin T Hi Sens 2 Hr 9 10/03/24 20:55: Troponin T Hi Sens 4Hr 13, Free T4 1.60 H, Free T3 pg/dL 2.6 10/03/24 22:12: POC Glucose 214 H 10/04/24 04:44: WBC 11.7 H, RBC 4.51, Hgb 14.1, Hct 41.3, MCV 91.6, MCH 31.3, MCHC 34.1, RDW Std Deviation 47.5 H, RDW Coeff of Charles 14.0, Plt Count 168, MPV 9.8, Immature Gran % (Auto) 0.700, Neut % (Auto) 81.8 H, Lymph % (Auto) 10.2 L, [place] % (Auto) 6.9, Eos % (Auto) 0.1, Baso % (Auto) 0.3, Absolute Neuts (auto) 9.6 H, Absolute Lymphs (auto) 1.19, Nucleated RBC % 0, Sodium 138, Potassium 3.8, Chloride 101, Carbon Dioxide 21.5, Anion Gap 15, BUN 17, Creatinine 0.85, Estim Creat Clear Calc 51.68, Est GFR (MDRD) Non-Af 71, BUN/Creatinine Ratio 20.0, Glucose 138 H, Hemoglobin A1c 7.2, Calcium 9.1, Magnesium 1.9, Total Bilirubin 3.66 H, AST 601 H, ALT 595 H, Alkaline Phosphatase 91, Total Protein 6.3, Albumin 3.9, Globulin 2.5, Albumin/Globulin Ratio 1.6 10/04/24 06:22: POC Glucose 144 H 10/04/24 12:51: POC Glucose 164 H Radiography Diagnostic Testing: Radiology Impression Gallbladder Ultrasound 10/03/24 14:32 IMPRESSION: 1. No visualized cholelithiasis or findings to suggest cholecystitis. No significant biliary dilatation. If unexplained symptoms persist, consider CT. 2. Additional description as above. Reading Location: [facility] Chest CTA 10/03/24 17:15 IMPRESSION: 1. No visible pulmonary embolism or other acute abnormality identified. 2. 2 mm right upper lobe micronodule, statistically benign and requiring no specific follow-up in a low risk patient. Otherwise, recommend follow-up CT chest in one year per the Fleischner society recommendations for pulmonary nodule follow-up, presuming no history of malignancy or known immunosuppression. 3. Additional description as above. Reading Location: [facility] MRCP 10/04/24 10:33 IMPRESSION: 1. Mild gallbladder wall thickening without visualized cholelithiasis. This finding is nonspecific and could be secondary to a primarily hepatic process such as hepatitis as suspected clinically, or perhaps early cholecystitis. Correlate with presentation/exam and if there is persistent concern, consider HIDA. 2. Redemonstrated borderline mild extrahepatic biliary dilatation without visualized choledocholithiasis or definite obstructing process evident by noncontrast MRCP. This could again conceivably be age- related, related to a nearby 3.9 cm periampullary duodenal diverticulum ampullary stenosis, or perhaps less likely an occult ampullary lesion. If concern persists, consider ERCP versus MRI abdomen with and without contrast. 3. Consider pelvic ultrasound for further evaluation of a 3.3 cm presumed uterine fibroid, not well evaluated. 4. Additional description as above. Reading Location: [facility] Rhythm Strip Rhythm Strip: Sinus Rhythm Rate: 91 Ectopy: None Physical Exam Const alert, oriented x3, no apparent distress and average body habitus General Appearance: cooperative HEENT normocephalic, head/scalp atraumatic, moist oral mucous membranes and oropharynx normal Eyes PERRL, EOMs intact bilaterally and conjunctivae normal Resp normal respiratory effort, normal air movement, no retractions, no use of accessory muscles and clear to auscultation bilaterally Cardio regular rate, regular rhythm, S1 normal heart sound, S2 normal heart sound and no murmurs GI normal to inspection, nondistended, normoactive bowel sounds, soft to palpation, non-tender and non-distended GI Narrative: Delong's sign is negative Extremity normal to inspection, full ROM and no clubbing, cyanosis or edema Neuro oriented x3, CN's II-XII intact bilaterally, moves all extremities and no focal motor deficits Sensorium / Orientation: awake and alert Motor Exam: strength 5/5 throughout Psych thought process normal, cooperative and affect normal Appearance: appropriate Assessment & Plan Assessment/Plan (1) Tachycardia: (2) Atypical chest pain: PLAN: Plan #Chest pain to rule out ACS * admit to PCU * Troponins x 2 were negative. 2D echo ordered and pending. * CTA chest was negative for any evidence of PE * EKG showed sinus tachycardia. * * * #SIRS criteria of unclear etiology * Patient is tachypneic and tachycardic. She is not febrile and there does not seem to be a clear focus of infection. * Respiratory panel negative * tachycardia likely due to iatrogenic hyperthyroidism; TSH is low, free T4 is elevated, indicating hyperthyroidism. She is on synthorid 75mg daily and says hever synthroid dose has been adjusted in the past also * cut down synthroid to 37.5mcg daily, starting tomorrow * follow up with PCP. 2D echo ordered and pending * * #Elevated liver enzymes: * Total bilirubin is further up to 3.66 today. AST and ALT have trended further up. ALP is normal * acyclovir stopped as this could cause elevated liver enzymes. * gallbladder USG showed no acute pathology. * gastroenterology consulted * will check hepatitis panel * * #Hypothyroidism: * On Synthroid. * TSH is low and free T4 elevated, indicting iatrogenic hyperthyroidism as she is on synthroid. * Synthroid dose reduced to 37.5mcg daily. #Hypertension: On lisinopril. #Type 2 diabetes mellitus: On empagliflozin 25 mg daily. Also on semaglutide. DVT prophylaxis: Lovenox CODE STATUS: full code Charges/Coding Visit Charges Inpatient E&M: 73600 Subs Hosp L2
--- NOTE | 2024-10-04 15:42 | CHAPLAIN ---
Type of Pastoral Visit _x__ Initial Visit ___ Follow-up Visit ___ On-call Visit ___ General Patient Visit ___ Spiritual Assessment ___ Family Conference ___ Bereavement ___ Rapid Response ___ Code Blue ___ Other (describe below) Pastoral Care Referral From _x__ Patient ___ Family ___ Nurse ___ Physician ___ Water Pollution Control Technician ___ Fabrication Machine Operator ___ Other (describe below) Sacrament/Intervention _x__ Active listening ___ Anointing ___ Rastafari ___ Bereavement ___ Communion ___ Toshia exploration ___ ___ Life review ___ Prayer ___ Reconciliation ___ Sacrament of Sick _x__ Supportive presence ___ Wedding ___ Other (describe below) Pastoral Comments patient is welcoming and describes the testing that is happening; pt admits that she is not used to being down and inactive so she is hoping to get home soon; pt is optimistic that she is doing fine and she speaks of being blessed with lots of family that are available to her; pt denies any worries or needs
[2024-10-04 15:44] LABS: Hepatitis B Surface Antibody Nonreactive; Hepatitis B Surface Antigen Nonreactive (Nonreactive); Hepatitis C Antibody Nonreactive (Nonreactive)
[2024-10-04 17:32] LABS: Bedside Glucose 123 mg/dL (74-106)
--- NOTE | 2024-10-04 20:38 | EX.PCM.CON.G ---
HPI Consult Data Date of Consult: 10/04/24 HPI Narrative Reason for Consultation: Jaundice with cholestatic hepatitis HPI Narrative: ADÁN SHEETS, is a 78-year-old female past medical history of diabetes, hypothyroidism and high cholesterol. No cardiac history. No history of DVT or PE. Prior history of reflux. States today while eating her breakfast she got lower sternal epigastric pain. She also had some nausea and vomiting. Denies any shortness of breath. No recent exertional chest pain or exertional dyspnea. Says she walks around her house all the time up and down steps without any problems. Denies recent illness. Denies fever or diarrhea. No melena or coffee-ground emesis. Sodium 138, Potassium 3.8, Chloride 101, Carbon Dioxide 21.5, Anion Gap 15, BUN 17, Creatinine 0.85, Estim Creat Clear Calc 51.68, Est GFR (MDRD) Non-Af 71, BUN/Creatinine Ratio 20.0, Glucose 138 H, Hemoglobin A1c 7.2, Calcium 9.1, Magnesium 1.9, Total Bilirubin 3.66 H, AST 601 H, ALT 595 H, Alkaline Phosphatase 91, Total Protein 6.3, Albumin 3.9, Globulin 2.5, Albumin/Globulin Ratio 1.6 US/Gallbladder IMPRESSION: 1. No visualized cholelithiasis findings to suggest cholecystitis. No significant biliary dilatation. If unexplained symptoms persist, consider CT. MRI/MRCP Abdomen without Contrast IMPRESSION: 1. Mild gallbladder wall thickening without visualized cholelithiasis. This finding is nonspecific and could be secondary to a primarily hepatic process such as hepatitis as suspected clinically, or perhaps early cholecystitis. Correlate with presentation/exam and if there is persistent concern, consider HIDA. 2. Redemonstrated borderline mild extrahepatic biliary dilatation without visualized choledocholithiasis or definite obstructing process evident by noncontrast MRCP. 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 If concern persists, consider ERCP versus MRI abdomen with and without contrast. 3. Consider pelvic ultrasound for further evaluation of a 3.3 cm presumed uterine fibroid, not well evaluated. 4. Additional description as above. [facility], [facility] Medical History Osteoarthritis Non-smoker Chest pain H/O cold sores Hyperlipemia HTN (hypertension) Hypothyroid Diabetes Home Medications ?Medication ?Instructions ?Recorded ?Last Taken ?Type acyclovir 400 mg tablet 400 mg PO DAILY 09/18/23 10/03/24 History empagliflozin 25 mg tablet 25 mg PO DAILY 09/18/23 10/03/24 History (Jardiance) levothyroxine 75 mcg tablet 75 mcg PO MOTUWETHFRSA 09/18/23 10/03/24 History pravastatin 40 mg tablet 40 mg PO QHS 09/18/23 10/02/24 History calcium carbonate 600 mg PO BID 10/03/24 10/03/24 History cetirizine 10 mg tablet (24Hour 10 mg PO DAILY allergy symptoms 10/03/24 10/03/24 History Allergy) lisinopril 5 mg tablet 5 mg PO DAILY 10/03/24 10/03/24 History multivitamin (Daily Multi-Vitamin 1 tab PO DAILY 10/03/24 10/03/24 History tablet) semaglutide 14 mg tablet (Rybelsus) 14 mg PO DAILY 10/03/24 10/03/24 History Allergy/AdvReac Type Severity Reaction Status Date / Time No Known Allergies Allergy Verified 10/03/24 20:28 Family History no significant family his Surgical History History of appendectomy Social History household members: none [facility] current occupational status: retired Smoking Status: Never smoker ROS Constitutional Constitutional: Denies anorexia, chills, fatigue, fever(s), malaise or weakness Eyes Eyes: Denies change in vision ENT HEENT: Denies dysphagia, headache(s) or sore throat Cardiovascular Cardiovascular: Reports chest pain, palpitations and rapid heart rate; Denies dyspnea on exertion, edema, lightheadedness, orthopnea, paroxysmal nocturnal dyspnea or syncope Respiratory/Chest Respiratory/Chest: Reports dyspnea; Denies cough, productive cough, shortness of breath at rest, shortness of breath with exertion or wheezing Gastrointestinal Gastrointestinal: Denies abdominal pain, coffee ground emesis, constipation, diarrhea, nausea or vomiting Genitourinary Genitourinary: Denies dysuria Neurologic Neurologic: Denies confusion, dizziness, focal weakness, headache(s), numbness, seizure-like activity, seizures, syncope or tingling Psychiatric Psychiatric: Denies anxiety or depression Endocrine Endocrinology: Denies change in body appearance Physical Exam Const alert, oriented x3, no apparent distress and average body habitus General Appearance: cooperative HEENT normocephalic, head/scalp atraumatic, moist oral mucous membranes and oropharynx normal Eyes PERRL, EOMs intact bilaterally and conjunctivae normal Resp normal respiratory effort, normal air movement, no retractions, no use of accessory muscles and clear to auscultation bilaterally Cardio regular rate, regular rhythm, S1 normal heart sound, S2 normal heart sound and no murmurs GI normal to inspection, nondistended, normoactive bowel sounds, soft to palpation, non-tender and non-distended GI Narrative: Delong's sign is negative Extremity normal to inspection, full ROM and no clubbing, cyanosis or edema Neuro oriented x3, CN's II-XII intact bilaterally, moves all extremities and no focal motor deficits Sensorium / Orientation: awake and alert Motor Exam: strength 5/5 throughout Psych thought process normal, cooperative and affect normal Appearance: appropriate Lab / Micro Data 10/04/24 04:44 10/04/24 04:44 Labs: Laboratory Results - last 24 hr 10/03/24 20:55: Troponin T Hi Sens 4Hr 13, Free T4 1.60 H, Free T3 pg/dL 2.6 10/03/24 22:12: POC Glucose 214 H 10/04/24 04:44: WBC 11.7 H, RBC 4.51, Hgb 14.1, Hct 41.3, MCV 91.6, MCH 31.3, MCHC 34.1, RDW Std Deviation 47.5 H, RDW Coeff of Charles 14.0, Plt Count 168, MPV 9.8, Immature Gran % (Auto) 0.700, Neut % (Auto) 81.8 H, Lymph % (Auto) 10.2 L, [place] % (Auto) 6.9, Eos % (Auto) 0.1, Baso % (Auto) 0.3, Absolute Neuts (auto) 9.6 H, Absolute Lymphs (auto) 1.19, Nucleated RBC % 0, Sodium 138, Potassium 3.8, Chloride 101, Carbon Dioxide 21.5, Anion Gap 15, BUN 17, Creatinine 0.85, Estim Creat Clear Calc 51.68, Est GFR (MDRD) Non-Af 71, BUN/Creatinine Ratio 20.0, Glucose 138 H, Hemoglobin A1c 7.2, Calcium 9.1, Magnesium 1.9, Total Bilirubin 3.66 H, AST 601 H, ALT 595 H, Alkaline Phosphatase 91, Total Protein 6.3, Albumin 3.9, Globulin 2.5, Albumin/Globulin Ratio 1.6 10/04/24 06:22: POC Glucose 144 H 10/04/24 12:51: POC Glucose 164 H 10/04/24 14:48: Hep Bs Antigen Nonreactive, Hep Bs Antibody Nonreactive, Hepatitis C Antibody Nonreactive 10/04/24 17:13: POC Glucose 123 H Rhythm Strip Rhythm Strip: Sinus Rhythm Rate: 91 Ectopy: None Imaging Radiology Impression Echocardiogram 10/04/24 05:55 Interpretation Summary The estimated ejection fraction is 60 %. Structually normal valves. Ordering Physician: Elen Perry Referring Physician: Genesis Simpson Performed By: Tianna Rivas, RDCS, RVT 10/04/24 10:33 IMPRESSION: 1. Mild gallbladder wall thickening without visualized cholelithiasis. This finding is nonspecific and could be secondary to a primarily hepatic process such as hepatitis as suspected clinically, or perhaps early cholecystitis. Correlate with presentation/exam and if there is persistent concern, consider HIDA. 2. Redemonstrated borderline mild extrahepatic biliary dilatation without visualized choledocholithiasis or definite obstructing process evident by noncontrast MRCP. 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 If concern persists, consider ERCP versus MRI abdomen with and without contrast. 3. Consider pelvic ultrasound for further evaluation of a 3.3 cm presumed uterine fibroid, not well evaluated. 4. Additional description as above. Reading Location: [id number] Assessment & Plan Assessment/Plan (1) Tachycardia: (2) Atypical chest pain: (3) Jaundice: (4) Cholestatic hepatitis: PLAN: Plan 78-year-old with type 2 diabetes presents with atypical chest pain. There were no indications for acute coronary syndrome and CTA of the chest was negative for PE. During her workup she was discovered to have cholestatic hepatitis with jaundice. The differential diagnosis does include choledocholithiasis even though was not seen on MRCP. Filling defects at the distal common bile duct and ampulla of very difficult to centimeter on MRCP. Also needed for diagnosis could include cholestatic hepatitis secondary to medications. Patient had been on acyclovir which can cause jaundice with cholestatic hepatitis. She is on a statin but these numbers are too high for statin and it is typically a idiosyncratic reaction that does not involve any pain. This is not a common reaction with semaglutide based medicines. Only other medicines takes hide lisinopril and that is not associated with cholestatic hepatitis with jaundice. Lastly because of her age malignant stricture, pancreatic malignancy and ampullary lesion also differential diagnosis. Continue to trend LFTs. She would likely need ERCP. Charges/Coding Visit Charges Inpatient E&M: 19356 Init Hosp L3
[2024-10-04] MEDS: Metoprolol Tartrate 25 MG Tablet 12.5 MG PO (21:48)
[2024-10-04 22:11] LABS: Bedside Glucose 143 mg/dL (74-106)
[2024-10-05] VITALS (7 sets, daily range): BP systolic 110–136; BP diastolic 75–92; PULSE 98–106; RESP 12–16; TEMP 36.4–36.9; O2SAT 94–97
[2024-10-05] MEDS: SEMAGLUTIDE 14 MG TABLET PO (06:21)
[2024-10-05 06:51] LABS: Bedside Glucose 128 mg/dL (74-106)
[2024-10-05 07:01] LABS: Absolute Lymphocyte Count 0.71 X10^3/uL (0.83-4.51); Absolute Neutrophil Count 5.9 X10^3/uL (2.0-7.7); Basophil# 0.03 X10^3/uL; Basophil% 0.4 % (0-1); Eosinophil# 0.08 X10^3/uL; Eosinophils% 1.1 % (0-5); Hematocrit 39.4 % (37-47); Hemoglobin 13.3 g/dL (12.0-15.0); Lymphocyte # 0.71 X10^3/ul (0.83-4.51); Lymphocyte % 9.7 % (19-41); Mean Corp Hgb Conc 33.8 g/dL (32-36); Mean Corpuscular Hgb 31.4 pg (27.0-32.0); Mean Corpuscular Volume 92.9 fL (81-99); Monocyte# 0.62 X10^3/uL; Monocyte% 8.5 % (0-10); NRBC Flagged by Analyzer 0 % (0-5); Neutrophil # 5.85 X10^3/uL (2.7-7.7); Platelet Count 144 K/mm3 (150-450); RBC Distribution Width CV 14.1 % (11.6-14.6); RBC Distribution Width SD 47.9 fl (35.1-43.9); Red Blood Count 4.24 M/mm3 (4.2-5.4); White Blood Count 7.3 K/mm3 (4.4-11.0)
[2024-10-05] MEDS: Loratadine 10 MG Tablet PO (08:54)
[2024-10-05] MEDS: Metoprolol Tartrate 25 MG Tablet 12.5 MG PO ×2 (08:54→22:19)
[2024-10-05] MEDS: Empagliflozin 25 MG Tablet PO (08:55)
[2024-10-05] MEDS: Calcium (Elemental) 500 MG Tablet 1500 MG PO (08:56)
[2024-10-05 09:54] LABS: ALB/GLOB Ratio 1.3 RATIO (0.9-2.4); AST(SGOT) 224 U/L (<=31); Alanine Aminotransfer ALT/SGPT 353 U/L (<=34); Albumin, Serum 3.7 g/dL (3.4-4.8); Alkaline Phosphatase 164 U/L (35-104); Anion Gap 17 (5-15); BUN 15 mg/dL (4-19); BUN/Creat Ratio 20.1 RATIO (10-20); Calcium,Total 9.4 mg/dL (7.6-11.0); Carbon Dioxide 17.2 mmol/L (21.0-32.0); Chloride 102 mmol/L (98-108); Creatinine, Serum 0.75 mg/dL (0.70-1.20); EST Glomerular Filtration Rate 82 (>60); Estimated Creatinine Clearance 54.91 ml/min (50-250); Globulin 2.7 g/dL (2.2-4.2); Glucose 124 mg/dL (70-99); Potassium 3.8 mmol/L (3.3-5.1); Protein, Total 6.4 g/dL (5.9-8.4); Sodium Level 136 mmol/L (133-145); Total Bilirubin 3.19 mg/dL (0.00-1.30)
[2024-10-05] MEDS: Insulin Lispro 100 UNIT/ML INSULN.PEN SC (11:06)
--- NOTE | 2024-10-05 11:08 | CASEMGMT ---
Assessment- SW met with patient to complete assessment. Patient was up moving around. Patient is alert and oriented X's 4 and willing to participate in assessment. SW also confirmed addresses and phone numbers for patient and her contacts. Living situation- Patient lives at home alone in a 1 story home with a couple of entry steps. Insurance- [employer] Medicare and [facility] Care as a secondary PCP: Genesis Simpson Specialists: None Pharmacy: [facility] [place] DME:? None ADL's/IADL's: None Transportation- Patient drives Past SNF/rehab: None Past HH: None LNOK- Daughter Rukhsana Farias LW: Has, but not on file. Asked that they be brought to [facility]. POA:? Has, but not on file. Asked that they be brought to [facility]. Patient's daughter Allison is her HCPOA Patient goal- Patient plans on going home at discharge with no needs. Plan: At this time it appears patient may not need anything at discharge. However, CHEMA and RN CM will follow. Belen Zhong AGRICULTURAL ENGINEERING TECHNOLOGIST JAMAR
[2024-10-05 11:27] LABS: Bedside Glucose 223 mg/dL (74-106)
[2024-10-05] MEDS: Bisacodyl 5 MG Tablet PO (12:05)
--- NOTE | 2024-10-05 12:43 | PCM.PROGNOTE ---
Subjective Subjective Patient seen and examined. She had no complaints this morning. Review of systems is otherwise negative. She has remained hemodynamically stable. Objective Data Objective Data Vital Signs: Vital Signs Temp Pulse Resp BP Pulse Ox O2 Del Method O2 Flow Rate 97.6 F L 99 12 110/75 95 Room Air 2 10/05/24 09:00 10/05/24 09:00 10/05/24 09:00 10/05/24 09:00 10/05/24 09:00 10/05/24 09:00 10/04/24 09:34 Oxygen Flow Rate (L/min) 2 Oxygen Delivery Method Room Air Weight: 154 lb 12.232 oz Body Mass Index (BMI) 28.3 Intake & Output: Intake and Output for Last 24 Hours 10/03/24 10/04/24 10/05/24 23:59 23:59 23:59 Intake Total 1990.67 / 1990.67 Output Total 1200 / 1200 Balance 791.67 / 791.67 Lab / Micro Data 10/05/24 05:53 10/05/24 05:53 Labs: Laboratory Results - last 24 hr 10/04/24 12:51: POC Glucose 164 H 10/04/24 14:48: Hep Bs Antigen Nonreactive, Hep Bs Antibody Nonreactive, Hepatitis C Antibody Nonreactive 10/04/24 17:13: POC Glucose 123 H 10/04/24 21:44: POC Glucose 143 H 10/05/24 05:53: WBC 7.3, RBC 4.24, Hgb 13.3, Hct 39.4, MCV 92.9, MCH 31.4, MCHC 33.8, RDW Std Deviation 47.9 H, RDW Coeff of Charles 14.1, Plt Count 144 L, MPV 10.0, Immature Gran % (Auto) 0.300, Neut % (Auto) 80.0 H, Lymph % (Auto) 9.7 L, [place] % (Auto) 8.5, Eos % (Auto) 1.1, Baso % (Auto) 0.4, Absolute Neuts (auto) 5.9, Absolute Lymphs (auto) 0.71 L, Nucleated RBC % 0, Sodium 136, Potassium 3.8, Chloride 102, Carbon Dioxide 17.2 L, Anion Gap 17 H, BUN 15, Creatinine 0.75, Estim Creat Clear Calc 54.91, Est GFR (MDRD) Non-Af 82, BUN/Creatinine Ratio 20.1 H, Glucose 124 H, Calcium 9.4, Total Bilirubin 3.19 H, AST 224 H, ALT 353 H, Alkaline Phosphatase 164 H, Total Protein 6.4, Albumin 3.7, Globulin 2.7, Albumin/Globulin Ratio 1.3 10/05/24 06:13: POC Glucose 128 H 10/05/24 11:06: POC Glucose 223 H Radiography Diagnostic Testing: Radiology Impression Echocardiogram 10/04/24 05:55 Interpretation Summary The estimated ejection fraction is 60 %. Structually normal valves. Ordering Physician: Elen Perry Referring Physician: Genesis Simpson Performed By: Tianna Rivas, EBONY, RVT 10/04/24 10:33 IMPRESSION: 1. Mild gallbladder wall thickening without visualized cholelithiasis. This finding is nonspecific and could be secondary to a primarily hepatic process such as hepatitis as suspected clinically, or perhaps early cholecystitis. Correlate with presentation/exam and if there is persistent concern, consider HIDA. 2. Redemonstrated borderline mild extrahepatic biliary dilatation without visualized choledocholithiasis or definite obstructing process evident by noncontrast MRCP. 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 If concern persists, consider ERCP versus MRI abdomen with and without contrast. 3. Consider pelvic ultrasound for further evaluation of a 3.3 cm presumed uterine fibroid, not well evaluated. 4. Additional description as above. Reading Location: [facility] Rhythm Strip Rhythm Strip: Sinus Rhythm Rate: 91 Ectopy: None Physical Exam Const alert, oriented x3 and no apparent distress General Appearance: cooperative HEENT normocephalic, head/scalp atraumatic, moist oral mucous membranes and oropharynx normal Eyes PERRL, EOMs intact bilaterally and conjunctivae normal Resp normal respiratory effort, normal air movement, no retractions, no use of accessory muscles and clear to auscultation bilaterally Cardio regular rate, regular rhythm, S1 normal heart sound, S2 normal heart sound and no murmurs Cardio Narrative: tachycardic GI normal to inspection, nondistended, normoactive bowel sounds, soft to palpation, non-tender and non-distended GI Narrative: Delong's sign is negative Extremity normal to inspection, full ROM and no clubbing, cyanosis or edema Neuro oriented x3, CN's II-XII intact bilaterally, moves all extremities and no focal motor deficits Sensorium / Orientation: awake and alert Motor Exam: strength 5/5 throughout Psych thought process normal, cooperative and affect normal Appearance: appropriate Assessment & Plan Assessment/Plan (1) Tachycardia: (2) Atypical chest pain: PLAN: Plan #Chest pain to rule out ACS admit to PCU Troponins x 2 were negative. 2D echo ordered and pending. CTA chest was negative for any evidence of PE EKG showed sinus tachycardia. 2D echo showed EF of 60% with normal diastolic for age and no regional wall motion abnormalities noted. #SIRS criteria of unclear etiology Patient is tachypneic and tachycardic. She is not febrile and there does not seem to be a clear focus of infection. Respiratory panel negative tachycardia likely due to iatrogenic hyperthyroidism; TSH is low, free T4 is elevated, indicating hyperthyroidism. She is on synthorid 75mg daily and says hever synthroid dose has been adjusted in the past also synthroid decreased to 37.5mcg daily follow up with PCP. 2D echo as above. #Elevated liver enzymes: Liver enzymes remain elevated though total bilirubin is trended down slightly from 3.66 yesterday to 3.1 today. AST and ALT remain elevated. acyclovir stopped as this could cause elevated liver enzymes. gallbladder USG showed no acute pathology. gastroenterology on board: had MRCP which showed mild gallbladder wall thickening without visualized cholelithiasis and redemonstrated borderline mild extrahepatic biliary dilatation without visualized choledocholithiasis or definite obstructing process. GI recommends ERCP. #Hypothyroidism: On Synthroid. TSH is low and free T4 elevated, indicting iatrogenic hyperthyroidism as she is on synthroid. Synthroid dose reduced to 37.5mcg daily. #Hypertension: On lisinopril. #Type 2 diabetes mellitus: On empagliflozin 25 mg daily. Also on semaglutide. DVT prophylaxis: Lovenox CODE STATUS: full code Charges/Coding Visit Charges Inpatient E&M: 27366 Subs Hosp L2
[2024-10-05 16:39] LABS: Bedside Glucose 129 mg/dL (74-106)
[2024-10-05] MEDS: 0.9% Saline Lock 10 ML Syringe IV (20:18)
[2024-10-05 23:13] LABS: Bedside Glucose 113 mg/dL (74-106)
[2024-10-06 04:35] VITALS: BP 123/83; PULSE 92; RESP 16; TEMP 36.2; O2SAT 95
[2024-10-06] MEDS: SEMAGLUTIDE 14 MG TABLET PO (06:22)
[2024-10-06 06:56] LABS: Bedside Glucose 143 mg/dL (74-106)
[2024-10-06 07:08] LABS: Absolute Lymphocyte Count 0.88 X10^3/uL (0.83-4.51); Absolute Neutrophil Count 3.9 X10^3/uL (2.0-7.7); Basophil# 0.03 X10^3/uL; Basophil% 0.5 % (0-1); Eosinophil# 0.13 X10^3/uL; Eosinophils% 2.3 % (0-5); Hematocrit 40.9 % (37-47); Hemoglobin 14.1 g/dL (12.0-15.0); Lymphocyte # 0.88 X10^3/ul (0.83-4.51); Lymphocyte % 15.7 % (19-41); Mean Corp Hgb Conc 34.5 g/dL (32-36); Mean Corpuscular Hgb 31.4 pg (27.0-32.0); Mean Corpuscular Volume 91.1 fL (81-99); Mean Platelet Vol. 9.5 fl (6.2-12.0); Monocyte# 0.65 X10^3/uL; Monocyte% 11.6 % (0-10); NRBC Flagged by Analyzer 0 % (0-5); Neutrophil # 3.89 X10^3/uL (2.7-7.7); Neutrophil % 69.2 % (47-70); Platelet Count 163 K/mm3 (150-450); RBC Distribution Width CV 13.9 % (11.6-14.6); RBC Distribution Width SD 47.3 fl (35.1-43.9); Red Blood Count 4.49 M/mm3 (4.2-5.4); White Blood Count 5.6 K/mm3 (4.4-11.0)
[2024-10-06 08:25] LABS: ALB/GLOB Ratio 1.3 RATIO (0.9-2.4); AST(SGOT) 100 U/L (<=31); Alanine Aminotransfer ALT/SGPT 255 U/L (<=34); Albumin, Serum 3.8 g/dL (3.4-4.8); Alkaline Phosphatase 198 U/L (35-104); Anion Gap 16 (5-15); BUN 15 mg/dL (4-19); BUN/Creat Ratio 22.5 RATIO (10-20); Calcium,Total 9.5 mg/dL (7.6-11.0); Carbon Dioxide 19.3 mmol/L (21.0-32.0); Chloride 100 mmol/L (98-108); Creatinine, Serum 0.68 mg/dL (0.70-1.20); EST Glomerular Filtration Rate 90 (>60); Estimated Creatinine Clearance 54.91 ml/min (50-250); Glucose 120 mg/dL (70-99); Potassium 3.5 mmol/L (3.3-5.1); Protein, Total 6.8 g/dL (5.9-8.4); Sodium Level 135 mmol/L (133-145); Total Bilirubin 1.21 mg/dL (0.00-1.30)
[2024-10-06] MEDS: Multivitamins,Therapeutic Tablet 1 TABLET PO (08:26)
[2024-10-06] MEDS: Calcium (Elemental) 500 MG Tablet PO (08:27)
[2024-10-06 08:28] VITALS: PULSE 98
[2024-10-06] MEDS: Empagliflozin 25 MG Tablet PO (08:28)
[2024-10-06] MEDS: Loratadine 10 MG Tablet PO (08:28)
[2024-10-06] MEDS: Metoprolol Tartrate 25 MG Tablet 12.5 MG PO (08:28)
[2024-10-06] MEDS: Enoxaparin 40 MG/0.4 ML Syringe SC (08:29)
[2024-10-06 08:48] VITALS: BP 135/84; PULSE 104; RESP 14; TEMP 36.6; O2SAT 98
[2024-10-06] MEDS: Levothyroxine 50 MCG Tablet PO (09:04)
[2024-10-06 12:18] LABS: Bedside Glucose 115 mg/dL (74-106)
--- NOTE | 2024-10-06 13:31 | DCINST_ITS ---
Discharge Instructions Diet Discharge Diet: Low fat / Low cholesterol DC O2, CPAP, BIPAP needs Home O2 Discharge instructions: No Dressing / Incision Discharge Activity: Return to Normal Activity Weight Bearing Status: Weight bearing as tolerated Dressing / Incision Call your doctor if you observe: Fever of 101 or Higher, Shortness of breath, Dizziness, Swelling in the ankles and Chest pain Follow Up Care Test Results: Test results from this visit will be discussed in further detail at your follow- up appointment, if applicable. Discharge Plan Admission Admit Date/Time: 10/04/24 15:09 Primary Reason for Your Visit: chest pain, elevated liver enzymes Attending Provider: Elen Perry Primary Care Provider: Genesis Simpson Instructions Patient Instructions: ED Chest Pain, Noncardiac Discharge Orders/Prescriptions Prescriptions: New levothyroxine 50 mcg Tablet 50 mcg PO DAILY@0600 Qty: 30 2RF metoprolol tartrate 25 mg Tablet 12.5 mg PO BID Qty: 60 2RF Continued Rybelsus 14 mg tablet 14 mg PO DAILY lisinopril 5 mg tablet 5 mg PO DAILY cetirizine [24Hour Allergy] 10 mg tablet 10 mg PO DAILY calcium carbonate 600 mg calcium (1,500 mg) tablet 600 mg PO BID multivitamin [Daily Multi-Vitamin] Tablet 1 tab PO DAILY Jardiance 25 mg tablet 25 mg PO DAILY Held pravastatin 40 mg tablet 40 mg PO QHS Hold Instructions: Resume on 10/20/24. hold o/a of elevated liver enzymes until you get the ok from PCP and gastroenterology to resume Discontinued acyclovir 400 mg tablet 400 mg PO DAILY levothyroxine 75 mcg tablet 75 mcg PO LELIAUWETHFRSA Referrals / Follow Up: Genesis Simpson CNS [Primary Care Provider] - Within 1 Week Jaime Llanos DO [Med Staff - Active Staff] - Within 1 Week Pablito Baugh PA [Non-Staff] - Within 1 Week Disposition Disposition (needs filled in before D/C Order can be placed): Home, Self Care
--- NOTE | 2024-10-06 13:31 | DS.PCM_ITS ---
Providers Date of Admission: 10/04/24 Date of Discharge: 10/06/24 Primary Care Physician: Genesis Simpson, ORTHOTIC ASSISTANT Consultations 10/04/24 07:49 Consult: Gastroenterology Routine Consulting Provider: [facility] Reason for Consult: elevated liver enzymes EMERGENT Consult: No MD Notified: Yes Date Notified: 10/04/24 Time Notified: 07:49 Method of Notification: Text Reason For Visit: CHEST PAIN Diagnosis Discharge Diagnosis (1) Tachycardia: Status: Acute Code(s): R00.0 - Tachycardia, unspecified (2) Atypical chest pain: Status: Acute Code(s): R07.89 - Other chest pain Plan #Chest pain to rule out ACS * admit to PCU * Troponins x 2 were negative. 2D echo ordered and pending. * CTA chest was negative for any evidence of PE * EKG showed sinus tachycardia. * 2D echo showed EF of 60% with normal diastolic for age and no regional wall motion abnormalities noted. #SIRS criteria of unclear etiology * Patient is tachypneic and tachycardic. She is not febrile and there does not seem to be a clear focus of infection. * Respiratory panel negative * tachycardia likely due to iatrogenic hyperthyroidism; TSH is low, free T4 is elevated, indicating hyperthyroidism. She is on synthorid 75mg daily and says hever synthroid dose has been adjusted in the past also * synthroid decreased to 37.5mcg daily * follow up with PCP. * 2D echo as above. * * #Elevated liver enzymes: * Liver enzymes remain elevated though total bilirubin is trended down slightly from 3.66 yesterday to 3.1 today. * AST and ALT remain elevated. * acyclovir stopped as this could cause elevated liver enzymes. * gallbladder USG showed no acute pathology. * gastroenterology on board: had MRCP which showed mild gallbladder wall thickening without visualized cholelithiasis and redemonstrated borderline mild extrahepatic biliary dilatation without visualized choledocholithiasis or definite obstructing process. * GI recommends ERCP. * * #Hypothyroidism: * On Synthroid. * TSH is low and free T4 elevated, indicting iatrogenic hyperthyroidism as she is on synthroid. * Synthroid dose reduced to 37.5mcg daily. #Hypertension: On lisinopril. #Type 2 diabetes mellitus: On empagliflozin 25 mg daily. Also on semaglutide. DVT prophylaxis: Lovenox CODE STATUS: full code Medications at Discharge Home Medications empagliflozin 25 mg tablet (Jardiance) 25 mg PO DAILY diabetes 09/18/23 pravastatin 40 mg tablet 40 mg PO QHS cholesterol 09/18/23 Held on 10/06/24. Instructions: Resume on 10/20/24. hold o/a of elevated liver enzymes until you get the ok from PCP and gastroenterology to resume calcium carbonate 600 mg PO BID supplement 10/03/24 cetirizine 10 mg tablet (24Hour Allergy) 10 mg PO DAILY allergy symptoms 10/03/24 lisinopril 5 mg tablet 5 mg PO DAILY blood thinner 10/03/24 multivitamin (Daily Multi-Vitamin tablet) 1 tab PO DAILY vitamin 10/03/24 semaglutide 14 mg tablet (Rybelsus) 14 mg PO DAILY diabetes 10/03/24 levothyroxine 50 mcg tablet 50 mcg PO DAILY@0600 #30 tabs 10/06/24 metoprolol tartrate 25 mg tablet 12.5 mg (1/2 x 25 mg) PO BID #60 tabs 10/06/24 Hospital Course Operations None Procedures None Summary of Care Provided Minutes Spent on Discharge: 45 Hospital Course: ADÁN SHEETS, is a 78 F with a PMH as outlined who presents via the ED on 10/03/2024 with a complaint of chest pain. She said she was eating her breakfast and started having chest pain. Pain was also in her lower epigastric region. She denied any shortness of breath, palpitations, or dizziness or lightheadedness. She did admit to some nausea and vomiting. She has not had such symptoms in the past. CT abdomen able to perform her activities of daily living previously without any concerns. Review of systems otherwise negative. Vitals in the ED were temperature of 97.8 Fahrenheit, heart rate of 127, blood pressure 126/79 and respiratory rate of 24. She was saturating at 98% on room air. CBC showed hemoglobin of 15.8 with WBC of 10 and platelets of 184. Chemistry showed sodium of 141 potassium of 3.8 and bicarb of 23.9. Creatinine was 0.83. Total bilirubin was 1.38 with direct bilirubin of 0.98. AST was 242 with ALT of 120. ALP was 80. Initial troponin was negative and the delta troponin was also negative. Lipase was 44. Chest x-ray showed no acute cardiopulmonary pathology and gallbladder ultrasound showed no visualized cholelithiasis or findings to suggest cholelithiasis and no significant biliary dilatation. CTA of the chest was done and read was pending. She has been admitted to be managed for chest pain to rule out ACS and also tachycardia of unclear etiology. TSh was elevated and free T4 was low, indicating iatrogenic hyperthyroidism. She was started on p.o. metoprolol 12.5 mg twice daily. Her Synthroid was reduced from 75 mcg daily to 50 mcg daily. Gastroenterology was consulted and thought her elevated liver enzymes could be due to choledocholithiasis versus cholestatic hepatitis secondary to jaundice. As stated acyclovir was discontinued. Her statins were also held. Gastroenterology recommended that patient could benefit from ERCP. However her liver enzymes started trending downwards and on day of discharge of 10/06/2024 her total bilirubin had normalized. AST and ALT also trending downward though ALP had trended slightly upwards. I did discuss this with gastroenterology who recommended that patient could be discharged and to follow-up within 1 week with gastroenterology on outpatient basis for repeat liver enzymes. Patient was discharged home on 10/06/2024. Her acyclovir was discontinued and her pravastatin was held and she is follow-up with gastroenterology and PCP to determine when it should be resumed. She is to follow-up with her primary care doctor within 1 to 2 weeks and is also to follow-up with waterproof coating machine tender for monitoring of her thyroid function. Patient seen and examined prior to discharge. She felt well and has no complaints. He had an uneventful night. Review of systems otherwise negative. Labs and vitals reviewed. Home medication reviewed and reconciled. Physical Exam Const alert, oriented x3, no apparent distress and average body habitus General Appearance: cooperative, comfortable and well kempt Orientation / Consciousness: awake Exam Limitations: no limitations HEENT normocephalic, head/scalp atraumatic, hearing grossly normal bilaterally, moist oral mucous membranes and oropharynx normal Mouth: oral and palatal mucosa normal Eyes PERRL, EOMs intact bilaterally and conjunctivae normal Neck no lymphadenopathy and supple Resp normal respiratory effort, normal air movement, no retractions, no use of accessory muscles and clear to auscultation bilaterally Cardio regular rate, regular rhythm, S1 normal heart sound, S2 normal heart sound and no murmurs GI normal to inspection, nondistended, normoactive bowel sounds, soft to palpation, non-tender and non-distended Extremity normal to inspection, full ROM and no clubbing, cyanosis or edema Skin no rashes or lesions noted Neuro oriented x3, CN's II-XII intact bilaterally, moves all extremities and no focal motor deficits Sensorium / Orientation: awake and alert Motor Exam: strength 5/5 throughout Psych thought process normal, cooperative and affect normal Appearance: appropriate Weight / BMI Weight Weight: 154 lb 12.232 oz Body Mass Index (BMI) 28.3 ABG / Lab / Microbiology Data 10/06/24 06:23 10/06/24 06:23 Laboratory: Laboratory Results - last 24 hr 10/05/24 16:22: POC Glucose 129 H 10/05/24 22:16: POC Glucose 113 H 10/06/24 06:19: POC Glucose 143 H 10/06/24 06:23: WBC 5.6, RBC 4.49, Hgb 14.1, Hct 40.9, MCV 91.1, MCH 31.4, MCHC 34.5, RDW Std Deviation 47.3 H, RDW Coeff of [place] 13.9, Plt Count 163, MPV 9.5, Immature Gran % (Auto) 0.700, Neut % (Auto) 69.2, Lymph % (Auto) 15.7 L, [place] % (Auto) 11.6 H, Eos % (Auto) 2.3, Baso % (Auto) 0.5, Absolute Neuts (auto) 3.9, Absolute Lymphs (auto) 0.88, Nucleated RBC % 0, Sodium 135, Potassium 3.5, Chloride 100, Carbon Dioxide 19.3 L, Anion Gap 16 H, BUN 15, Creatinine 0.68 L, Estim Creat Clear Calc 54.91, Est GFR (MDRD) Non-Af 90, BUN/Creatinine Ratio 22.5 H, Glucose 120 H, Calcium 9.5, Total Bilirubin 1.21, AST 100 H, ALT 255 H, Alkaline Phosphatase 198 H, Total Protein 6.8, Albumin 3.8, Globulin 3.0, Albumin/Globulin Ratio 1.3 10/06/24 11:51: POC Glucose 115 H D/C Instructions Discharge Diet: Low fat / Low cholesterol Discharge Activity: Return to Normal Activity Weight Bearing Status: Weight bearing as tolerated Call your doctor if you observe: Fever of 101 or Higher, Shortness of breath, Dizziness, Swelling in the ankles and Chest pain DC O2, CPAP, BIPAP Needs Home O2 Discharge instructions: No Meaningful Use Info Meaningful Use Meaningful Use Diagnoses (Choose all that apply): None applicable Ischemic Stroke Statin Dosing Therapy Reference: STATIN DOSE THERAPY REFERENCE: * Patients > 75 years receive moderate or high dose statin therapy. * Patients 75 years or YOUNGER should receive HIGH intensity statin dose unless contraindicated. You will be required to document reason for non-treatment if statin daily dose does not meet guidelines. HIGH DOSE STATIN THERAPY DAILY Atorvastatin > than or = to 40 mg Rosuvastatin > than or = to 20 mg Amlodipine + Atorvastatin > than or = to 2.5/40 mg Ezetimibe + Simvastatin 10/80 mg Simvastatin 80mg Discharge Plan Admission Admit Date/Time: 10/04/24 15:09 Primary Reason for Your Visit: chest pain, elevated liver enzymes Attending Provider: Elen Perry Primary Care Provider: Genesis Simpson Instructions Patient Instructions: ED Chest Pain, Noncardiac Discharge Orders/Prescriptions Prescriptions: New levothyroxine 50 mcg Tablet 50 mcg PO DAILY@0600 Qty: 30 2RF metoprolol tartrate 25 mg Tablet 12.5 mg PO BID Qty: 60 2RF Continued Rybelsus 14 mg tablet 14 mg PO DAILY lisinopril 5 mg tablet 5 mg PO DAILY cetirizine [24Hour Allergy] 10 mg tablet 10 mg PO DAILY calcium carbonate 600 mg calcium (1,500 mg) tablet 600 mg PO BID multivitamin [Daily Multi-Vitamin] Tablet 1 tab PO DAILY Jardiance 25 mg tablet 25 mg PO DAILY Held pravastatin 40 mg tablet 40 mg PO QHS Hold Instructions: Resume on 10/20/24. hold o/a of elevated liver enzymes until you get the ok from PCP and gastroenterology to resume Discontinued acyclovir 400 mg tablet 400 mg PO DAILY levothyroxine 75 mcg tablet 75 mcg PO [id number] Referrals / Follow Up: Genesis Simpson CNS [Primary Care Provider] - Within 1 Week Jaime Llanos DO [Med Staff - Active Staff] - Within 1 Week Pablito Baugh PA [Non-Staff] - Within 1 Week Disposition Disposition (needs filled in before D/C Order can be placed): Home, Self Care Charges/Coding Visit Charges Inpatient E&M: 18576 Disch Hosp >30min
[2024-10-06 13:42] VITALS: BP 123/82; PULSE 106; RESP 16; TEMP 36.5; O2SAT 98
== END 2024-10-06 14:11 | disposition home or self-care (01) | DRG 313 ==
LOC: ED 17:35 → PCU 19:27
PROVIDERS: Family Medicine; Admitting Provider Student in an Organized Health Care Education/Training Program; Emergency Provider Emergency Medicine; PCP Clinical Nurse Specialist Adult Health; Visit Provider Student in an Organized Health Care Education/Training Program
DX: R07.89 Other chest pain (principal); E05.90 Thyrotoxicosis, unspecified without thyrotoxic crisis or storm; E11.9 Type 2 diabetes mellitus without complications; I10 Essential (primary) hypertension; K82.8 Other specified diseases of gallbladder; Z79.899 Other long term (current) drug therapy; Z79.85 Long-term (current) use of injectable non-insulin antidiabetic drugs
CPT/HCPCS: 36415; 71045; 71275; 74181; 76705; 80048; 80053; 80076; 82962; 83036; 83690; 83735; 83880; 84439; 84443; 84481; 84484; 85025; 86706; 86803; 87340; 93005; 93306; 99285; Q9967; A4216; J2405

== ENCOUNTER → 2024-10-15 | Outpatient (CLI) | payer MEDICARE, OTHER, SELFPAY ==
[2024-10-15 10:21] LABS: AST(SGOT) 38 U/L (<=31); Alanine Aminotransfer ALT/SGPT 53 U/L (<=34); Albumin, Serum 4.5 g/dL (3.4-4.8); Alkaline Phosphatase 112 U/L (35-104); Globulin 3.1 g/dL (2.2-4.2); Protein, Total 7.6 g/dL (5.9-8.4); Total Bilirubin 0.47 mg/dL (0.00-1.30)
[2024-10-16 06:20] LABS: Hepatitis A AB, Total Negative (Negative); Hepatitis A IgM Antibody Negative (Negative); Hepatitis B Core Ab Total Negative (Negative)
== END | disposition home or self-care (01) ==
LOC: LAB 09:15
PROVIDERS: PCP Clinical Nurse Specialist Adult Health; Referring Provider Nurse Practitioner Acute Care; Visit Provider Nurse Practitioner Acute Care
DX: R74.8 Abnormal levels of other serum enzymes (principal); K75.89 Other specified inflammatory liver diseases
CPT/HCPCS: 36415; 80076; 86704; 86708; 86709

== ENCOUNTER → 2024-10-25 | Outpatient (CLI) | payer MEDICARE, OTHER, SELFPAY ==
[2024-10-25 16:15] LABS: AST(SGOT) 31 U/L (<=31); Alanine Aminotransfer ALT/SGPT 31 U/L (<=34); Albumin, Serum 4.4 g/dL (3.4-4.8); Alkaline Phosphatase 86 U/L (35-104); Bilirubin, Direct 0.21 mg/dL (0.00-0.30); Globulin 2.6 g/dL (2.2-4.2); Total Bilirubin 0.38 mg/dL (0.00-1.30)
== END | disposition home or self-care (01) ==
LOC: LAB 13:17
PROVIDERS: PCP Clinical Nurse Specialist Adult Health; Referring Provider Nurse Practitioner Acute Care; Visit Provider Nurse Practitioner Acute Care
DX: R74.8 Abnormal levels of other serum enzymes (principal); K75.89 Other specified inflammatory liver diseases
CPT/HCPCS: 36415; 80076